=== PATIENT | female | born 1980 | race Caucasian/White ===

== ENCOUNTER → 2021-11-19 12:01 | Outpatient (BNVA) | payer MEDICAID, SELFPAY | PROVIDERS: Visit Provider Nurse Practitioner Family | DX: E03.9 Hypothyroidism, unspecified (principal); E55.9 Vitamin D deficiency, unspecified; Z12.39 Encounter for other screening for malignant neoplasm of breast; Z13.6 Encounter for screening for cardiovascular disorders; N93.9 Abnormal uterine and vaginal bleeding, unspecified | CPT/HCPCS: 80053; 80061; 82306; 82607; 84439; 84443; 84481; 85025 ==

== ENCOUNTER 2021-11-24 09:51 | Outpatient (CLI) | payer MEDICAID, SELFPAY ==
--- NOTE | 2021-11-24 10:13 | MM_ITS ---
WS: [id number] VIEWS: MLO and CC views both breasts. 3D digital tomosynthesis is also included in this exam. No priors. Findings: There was no sign of mass, architectural distortion or suspicious calcification in either breast. MM/[place] [id number] Impression: BI-RADS: 1-Negative FOLLOW-UP: 1 Year Follow-up This mammogram was also analyzed by the Computer Aided Detection System R2 Imag e Wreath Inspector.
== END 2021-11-24 09:52 | disposition home or self-care (01) ==
PROVIDERS: PCP Nurse Practitioner Family; Visit Provider Nurse Practitioner Family
DX: Z12.31 Encounter for screening mammogram for malignant neoplasm of breast (principal)
CPT/HCPCS: 77063; 77067

== ENCOUNTER → 2021-11-26 08:42 | Outpatient (BNVA) | payer MEDICAID, SELFPAY | PROVIDERS: PCP Nurse Practitioner Family; Visit Provider Nurse Practitioner Family | DX: E03.9 Hypothyroidism, unspecified (principal); E55.9 Vitamin D deficiency, unspecified | CPT/HCPCS: 80053; 80061; 82306; 82607; 84439; 84443; 84481 ==

== ENCOUNTER → 2022-03-12 13:15 | Outpatient (BNVA) | payer MEDICAID, SELFPAY | PROVIDERS: PCP Nurse Practitioner Family; Visit Provider Nurse Practitioner Family | DX: E03.9 Hypothyroidism, unspecified (principal); Z13.6 Encounter for screening for cardiovascular disorders; E66.9 Obesity, unspecified; E55.9 Vitamin D deficiency, unspecified | CPT/HCPCS: 80053; 80061; 82306; 84443; 85025 ==

== ENCOUNTER → 2022-06-07 10:50 | Outpatient (BNVA) | payer MEDICAID, SELFPAY | PROVIDERS: PCP Nurse Practitioner Family; Visit Provider Nurse Practitioner Family | DX: E55.9 Vitamin D deficiency, unspecified (principal); E78.5 Hyperlipidemia, unspecified | CPT/HCPCS: 80053; 80061; 82306 ==

== ENCOUNTER → 2024-01-23 11:10 | Outpatient (BNVA) | payer MEDICAID, SELFPAY | PROVIDERS: PCP Nurse Practitioner Family; Visit Provider Nurse Practitioner Family | DX: Z13.6 Encounter for screening for cardiovascular disorders (principal); E55.9 Vitamin D deficiency, unspecified; E78.5 Hyperlipidemia, unspecified; E03.9 Hypothyroidism, unspecified | CPT/HCPCS: 80053; 80061; 82306; 82607; 83735; 84443; 85025 ==

== ENCOUNTER → 2024-04-16 09:54 | Outpatient (BNVA) | payer MEDICAID, SELFPAY | PROVIDERS: PCP Nurse Practitioner Family; Visit Provider Specialist | DX: G56.01 Carpal tunnel syndrome, right upper limb (principal); Z01.818 Encounter for other preprocedural examination | CPT/HCPCS: 36415; 73130; 80053; 81001; 85025 ==

== ENCOUNTER 2024-04-25 12:30 | Outpatient (CLI) | payer MEDICAID, SELFPAY ==
[2024-04-25 13:09] LABS: Bilirubin Urine Negative (Negative); Blood Urine Negative (Negative); Glucose Urine UA Negative (Normal); Ketones Urine Negative (Negative); Leukocyte Esterase Urine Trace (Negative); Nitrate Urine Negative (Negative); Protein Urine Negative (Negative); Specific Gravity, Urine 1.021 (1.005-1.030); Urine Appearance Clear (CLEAR); Urine Color Yellow (Yellow); Urobilinogen Urine 0.2 mg/dL (Negative); pH Urine 5.5 (5-7)
[2024-04-25 13:12] LABS: Add Urine Microscopic? YES; Bacteria Urine 1+ /hpf; RBC Urine 0-2 /hpf (0-2); WBC Urine 0-5 /hpf (0-5)
[2024-04-25 13:16] LABS: Add Urine Culture? No
== END 2024-04-25 12:31 | disposition home or self-care (01) ==
LOC: LAB 12:31
PROVIDERS: PCP Nurse Practitioner Family; Visit Provider Specialist
DX: G56.01 Carpal tunnel syndrome, right upper limb (principal); Z01.818 Encounter for other preprocedural examination; N39.0 Urinary tract infection, site not specified
CPT/HCPCS: 36415; 81001

== ENCOUNTER 2024-04-26 11:21 | Day surgery (SDC) | payer MEDICAID, SELFPAY ==
[2024-04-26] VITALS (11 sets, daily range): BP systolic 107–140; BP diastolic 50–79; PULSE 57–65; RESP 12–19; TEMP 36.1–36.4; O2SAT 92–100; BMI 53.4
[2024-04-26 11:55] LABS: OR HCG Qualitative Urine Negative (Negative)
[2024-04-26] MEDS: acetaminophen 1,000 MG/100 ML PIGGYBACK 400 MG IV (12:15)
[2024-04-26] MEDS: CELEcoxib 200 mg Capsule 400 MG PO (12:15)
[2024-04-26] MEDS: gabapentin 300 mg Capsule PO (12:15)
[2024-04-26] MEDS: sodium chloride 0.9% 1,000 ML 30 ML IV (12:16)
--- NOTE | 2024-04-26 12:48 | P.HPUD_ITS ---
Surgery/Procedure H&P Update DATE OF PROCEDURE: April 26, 2024 DATE H&P PERFORMED: 04/16/24 H&P UPDATE INFORMATION: I have reviewed H&P completed within last 30 days, I have examined patient prior to procedure, No changes to prior documentation and H&P is in [facility] [place] EMR on date indicated PLANNED PROCEDURE: Operation Date: 04/26/24 13:15 Proposed Procedures p Carpal Tunnel Release(Right) - Val Batista MD Related Problem List Diagnoses (1) Right carpal tunnel syndrome:
--- NOTE | 2024-04-26 13:02 | ANES.PREANE2 ---
Pre-Anesthetic Assessment Height/Weight: Height 1.75 m Weight 164.2 kg Temp Pulse Resp BP Pulse Ox O2 Del Method 97.6 F 65 18 135/79 98 Room Air 04/26/24 12:00 04/26/24 12:00 04/26/24 12:00 04/26/24 12:00 04/26/24 12:00 04/26/24 12:00 Preop Diagnosis: Right Carpal Tunnel Syndrome Operation Date: 04/26/24 13:15 Proposed Procedures p Carpal Tunnel Release(Right) - Val Batista MD Familial anesthetic complications: none, complication from epidural in past resulting in code. Was Beta Ramon taken within 24 hours: N/A Was Clonidine taken within 24 hours: N/A Last intake: Intake Last Liquid Date 04/25/24 Last Liquid Time 21:00 Last Solid Date 04/25/24 Last Solid Time 21:00 Social Alcohol (4 on average) and Tobacco 1/8 pack(s) per day 26 pack years Exam alert, oriented x 3, clear to auscultation bilaterally and regular rate & rhythm Airway Submandibular: within normal limits Cervical ROM: within normal limits Mallampati: Class IV Dentition: chipped Comments: Comments: bilateral front teeth chipped missing right lower molar. Pulmonary None reported CV/HEM None reported None reported Hepatic None reported GI None reported Metabolic Morbid Obesity and Thyroid Disease [facility] [place] None reported Neuropsych Anxiety Anesthetic Plan ASA status: 3 Anesthesia: General Other: GETA due to BMI Medications/Allergies Home Medications Medication Instructions Recorded Confirmed Last Taken Type escitalopram oxalate 20 mg tablet 20 mg PO DAILY #30 tabs 12/26/23 04/25/24 04/18/24 Rx celecoxib 200 mg capsule (Celebrex) 200 mg PO BID PRN pain #60 caps 01/23/24 04/25/24 04/18/24 Rx gabapentin 300 mg capsule 300 mg PO BID #60 caps 01/23/24 04/25/24 04/18/24 Rx levothyroxine 25 mcg capsule 25 mcg PO DAILY #90 caps 01/27/24 04/25/24 04/18/24 Rx Allergies Allergy/AdvReac Type Severity Reaction Status Date / Time No Known Allergies Allergy Verified 04/16/24 10:04 Current Medications Generic Name Dose Route Start Last Admin Trade Name Freq PRN Reason Stop Dose Admin Sodium Chloride 1,000 mls @ 30 mls/hr 04/26/24 11:30 04/26/24 12:16 Sodium Chloride 0.9% IV 04/27/24 11:29 30 mls/hr .Q24H LOULOU Administration PFSH Anesthesia Medical History Vitamin D deficiency Adult hypothyroidism Surgical History History of cholecystectomy Family History Mother Diabetes Heart disease Grandmother Cancer kidney Social History Smoking and tobacco/nicotine status: never used tobacco/nicotine Quit status (tobacco/nicotine): not considering quitting Second hand smoke exposure: Yes Alcohol intake: current Alcohol intake frequency: few times a month Alcohol type: other Substance/Drug Use: never Lives independently: Yes Household members: children Housing: House Marital status: Single Number of children: 4 service: No Current occupational status: employed Current gender identity: Female Special feliciano needs: No Data Anesthesia Cardiac Studies: No Data to Display
[2024-04-26] MEDS: ceFAZolin 3,000 MG in sodium chloride 0.9% (plus) 100 ML 200 MG IV (13:31)
[2024-04-26] MEDS: BUPivacaine 0.5% INJ 30 mL XX (14:17)
--- NOTE | 2024-04-26 15:18 | P.OP_ITS ---
Operative Report Date of procedure: April 26, 2024 Pre-op diagnosis: Right carpal tunnel syndrome Post-op diagnosis: Right carpal tunnel syndrome Post-op findings: Significant compression across carpal canal consistent with carpal tunnel syndrome. Discoloration of the median nerve. Procedure done: Right carpal tunnel release Implants: None Specimens removed/disposition: None Pathology: None Surgeon: Val Batista MD Professor Of Biochemistry: None Anesthesia: General (Intubated, ASA 3) Estimated blood loss (mL): 2 Tourniquet time (min): 22 (At 250 mmHg) IV fluids (mL): 700 Urine output (mL): 0 (No Eller) Complications: None Findings: Findings consistent with carpal tunnel syndrome Condition: stable Disposition: PACU (Then return to same-day surgery for discharge to home) Brief History: This 43-year-old woman presented to clinic following nerve conduction studies for complaints of right wrist pain. Patient complained of numbness and tingling into the right hand. Nerve conduction studies were obtained on March 01, 2024. The impression was moderate entrapment of the right median nerve at the wrist with probable mild entrapment of the left median nerve. The patient wished to proceed with operative intervention. Risks and complications were discussed with the patient. Consents were signed and questions were answered. Procedure: The patient was brought to the operating theater. The patient had a general intubated anesthesia, ASA 3. The tourniquet was elevated to 250 mmHg for a total tourniquet time of 22 minutes. The patient was also given Ancef 3 g preoperatively. The arm was then prepped and draped with DuraPrep in usual fashion with the arm draped free. A surgical pause was performed. At the time, the surgical pause, we confirmed the site and side of surgery. We also confirmed the patient's identity, appropriate and timely administration of preoperative antibiotics and preoperative surgical markings. An incision was then made along the thenar crease. The incision crossed the wrist joint in a curvilinear fashion. Dissection continued through skin and soft tissues using a scalpel. The palmaris longus was identified along with the transverse carpal ligament. Each of these was released carefully to avoid injury to the median nerve. We were able to dissect gently into the carpal canal which was noted to be quite tight with significant compression across the median nerve. The nerve was visualized and was an hourglass shape. The canal was subsequently palpated to assure there was no bony encroachment upon the canal or further fibrous compression across the canal proximally or distally. There was a quite thickened fibrous tissue within the canal, and this was opened longitudinally as well. The canal was then palpated distally and proximally to assure that my small finger was passed easily without impingement. Finding this to be so, attention was directed to closure. The wound was irrigated with ropivacaine plain. It was then closed with 3-0 nylon in an interrupted mattress fashion. Sterile dressing was then placed consisting of Dermabond, OpSite, fluffed fluffs, sterile soft roll, and an Derik wrap. The tourniquet was released after 22 minutes. There were no complications. There were no specimens. The procedure was well tolerated. Plan is the patient will be discharged home. Related Problem List Diagnoses (1) Right carpal tunnel syndrome:
== END 2024-04-26 15:48 | disposition home or self-care (01) ==
PROVIDERS: Anesthesiology; PCP Nurse Practitioner Family; Visit Provider Specialist
PROC: (CPT 64721; principal; 2024-04-26 13:15)
DX: G56.01 Carpal tunnel syndrome, right upper limb (principal); F17.210 Nicotine dependence, cigarettes, uncomplicated; E66.01 Morbid (severe) obesity due to excess calories; Z68.43 Body mass index [BMI] 50.0-59.9, adult; Z79.899 Other long term (current) drug therapy; Z79.890 Hormone replacement therapy; E03.9 Hypothyroidism, unspecified
CPT/HCPCS: 64721; 81025; J0131; J0330; J0690; J2250; J2704; J3010; J3490; J7030

== ENCOUNTER → 2024-06-05 10:40 | Outpatient (BNVA) | payer MEDICAID, SELFPAY | PROVIDERS: PCP Nurse Practitioner Family; Visit Provider Nurse Practitioner Family | DX: G47.10 Hypersomnia, unspecified (principal); N63.20 Unspecified lump in the left breast, unspecified quadrant; E03.9 Hypothyroidism, unspecified; E55.9 Vitamin D deficiency, unspecified; E78.5 Hyperlipidemia, unspecified | CPT/HCPCS: 80053; 80061; 82306; 84443; 85025 ==

== ENCOUNTER → 2024-06-11 11:10 | Outpatient (BNVA) | payer MEDICAID, SELFPAY | PROVIDERS: PCP Nurse Practitioner Family; Visit Provider Nurse Practitioner Family | DX: E03.9 Hypothyroidism, unspecified (principal); E55.9 Vitamin D deficiency, unspecified; E78.5 Hyperlipidemia, unspecified | CPT/HCPCS: 82306; 84443 ==

== ENCOUNTER 2024-06-14 13:44 | Outpatient (CLI) | payer MEDICAID, SELFPAY ==
--- NOTE | 2024-06-14 14:00 | US_ITS ---
WS: [id number] BILATERAL 3D TOMOSYNTHESIS DIGITAL DIAGNOSTIC MAMMOGRAPHY WITH CAD CLINICAL INFORMATION: N63.20 - Unspecified lump in the left breast, unspecified... HISTORY: LEFT breast lump COMPARISON: 2021 TECHNIQUE: Bilateral CC, MLO, and ML views. FINDINGS: Scattered fibroglandular densities bilaterally. LEFT nipple inversion with skin thickening. Dense underlying subareolar breast tissue. Palpable marker near this area. Ultrasound is pending. RIGHT breast is unremarkable ULTRASOUND BREAST LEFT TECHNIQUE: Ultrasound left breast focused area of concern. CLINICAL INFORMATION: N63.20 - Unspecified lump in the left breast, unspecified... FINDINGS: Ultrasound subareolar LEFT breast And anterior breast in the area of palpable concern. Complex fluid collection adjacent to the nipple suspicious for abscess. This measures approximately 1.2 x 1.3 x 1.5 cm. Associated skin thickening measuring 0.4 cm. Recommend short-term interval follow-up ultrasound after antibiotic treatment in 3-4 weeks Recommend follow-up abscess to resolution to ensure no underlying neoplasm or inflammatory breast carcinoma. Patient does report new nipple inversion. US/US breast LT limited* [id number] IMPRESSION: DENSITY: There are scattered areas of fibroglandular density. BI-RADS: 3 - Probably Benign. FOLLOW UP: See Report Suspected abscess in the area of concern described above. Recommend short-term interval follow-up ultrasound in 3 to 4 weeks after antibiotic treatment KIERAN Bernardo out of office at 06/14/2024 2:[address] Bai 06/14/2024 2:52 PM
--- NOTE | 2024-06-14 14:30 | MM_ITS ---
WS: [id number] BILATERAL 3D TOMOSYNTHESIS DIGITAL DIAGNOSTIC MAMMOGRAPHY WITH CAD CLINICAL INFORMATION: N63.20 - Unspecified lump in the left breast, unspecified... HISTORY: LEFT breast lump COMPARISON: 2021 TECHNIQUE: Bilateral CC, MLO, and ML views. FINDINGS: Scattered fibroglandular densities bilaterally. LEFT nipple inversion with skin thickening. Dense underlying subareolar breast tissue. Palpable marker near this area. Ultrasound is pending. RIGHT breast is unremarkable ULTRASOUND BREAST LEFT TECHNIQUE: Ultrasound left breast focused area of concern. CLINICAL INFORMATION: N63.20 - Unspecified lump in the left breast, unspecified... FINDINGS: Ultrasound subareolar LEFT breast And anterior breast in the area of palpable concern. Complex fluid collection adjacent to the nipple suspicious for abscess. This measures approximately 1.2 x 1.3 x 1.5 cm. Associated skin thickening measuring 0.4 cm. Recommend short-term interval follow-up ultrasound after antibiotic treatment in 3-4 weeks Recommend follow-up abscess to resolution to ensure no underlying neoplasm or inflammatory breast carcinoma. Patient does report new nipple inversion. MM/MM diag tomosynthesis [id number] IMPRESSION: DENSITY: There are scattered areas of fibroglandular density. BI-RADS: 3 - Probably Benign. FOLLOW UP: See Report Suspected abscess in the area of concern described above. Recommend short-term interval follow-up ultrasound in 3 to 4 weeks after antibiotic treatment KIERAN Bernardo out of office at 06/14/2024 2:[address] Bai 06/14/2024 2:52 PM
== END 2024-06-14 13:45 | disposition home or self-care (01) ==
PROVIDERS: PCP Nurse Practitioner Family; Visit Provider Nurse Practitioner Family
DX: N63.20 Unspecified lump in the left breast, unspecified quadrant (principal); R92.323 Mammographic fibroglandular density, bilateral breasts; N64.59 Other signs and symptoms in breast; R23.4 Changes in skin texture
CPT/HCPCS: 76642; 77062; G0279

== ENCOUNTER 2024-07-12 09:23 | Outpatient (CLI) | payer MEDICAID, SELFPAY ==
--- NOTE | 2024-07-12 09:30 | US_ITS ---
WS: [id number] ULTRASOUND BREAST LEFT TECHNIQUE: Ultrasound left breast focused area of concern. CLINICAL INFORMATION: N61.1 - Abscess of the breast and nipple COMPARISON: 06/14/2024 FINDINGS: Again seen is the subareolar LEFT breast abscess today measuring 2.5 x 1.7 x 1.6 cm. Previously this measured 1.2 x 1.3 x 1.5 cm. US/US breast LT limited* [id number] IMPRESSION: 1. Abscess slightly increased in size today but similar in appearance. Recomme nd continued antibiotic therapy and interval follow-up to resolution
== END 2024-07-12 09:24 | disposition home or self-care (01) ==
PROVIDERS: PCP Nurse Practitioner Family; Visit Provider Nurse Practitioner Family
DX: N61.1 Abscess of the breast and nipple (principal)
CPT/HCPCS: 76642

== ENCOUNTER 2024-08-09 16:41 | Outpatient (CLI) | payer MEDICAID, SELFPAY | END 2024-08-09 16:42 | disposition home or self-care (01) | LOC: SLEEP 16:42 | PROVIDERS: PCP Nurse Practitioner Family; Referring Provider Nurse Practitioner Family; Visit Provider Internal Medicine Pulmonary Disease | DX: G47.33 Obstructive sleep apnea (adult) (pediatric) (principal) | CPT/HCPCS: 80053; 80061; 82306; 84443; 85025; G0399 ==